=== PATIENT | male | born 1965 | race Caucasian/White ===

== ENCOUNTER 2023-12-03 07:41 | Outpatient (CLI) | payer OTHER ==
[2023-12-03 08:29] LABS: HEMOGLOBIN 15.3 g/dL (13-16.00); MEAN CORPUSCULAR HEMOGLOBIN 30.6 pg (27.00-32.0); MEAN CORPUSCULAR HGB CONC 34.8 g/dl (32.0-36.0); PLATELET COUNT 170 K/uL (150-450); RED CELL DISTRIBUTION WIDTH 13.5 % (11.5-14.5)
[2023-12-03 08:48] LABS: INR 1.02; PARTIAL THROMBOPLASTIN TIME 27.5 SECONDS (22.0-34.0); PROTHROMBIN TIME 11.1 SECONDS (9.0-11.5)
[2023-12-03 08:57] LABS: URINE APPEARANCE Clear; URINE BILIRRUBIN Negative (NEGATIVE); URINE BLOOD Negative; URINE COLOR Yellow; URINE GLUCOSE Negative (NEGATIVE); URINE KETONE Negative (NEGATIVE); URINE LEUKOCYTE Trace; URINE NITRATE Negative; URINE PROTEIN Negative (NEGATIVE)
[2023-12-03 08:58] LABS: URINE BACTERIA 8.8 uL (0.0-1933); URINE RBC 4.5 uL (0.0-20.8); URINE WBC 2.1 uL (0.0-23.2)
[2023-12-03 09:14] LABS: COL EPI 175 SECONDS (82-175)
[2023-12-03 09:30] LABS: BILIRUBIN TOTAL 0.74 mg/dL (0.3-1.2); CALCIUM 9.1 mg/dL (8.5-10.1); CREATININE SERUM 0.84 mg/dL (0.70-1.30); GFR 93.21; GLOBULINA 2.9 G/DL (2.4-3.5); POTASSIUM 4.52 mEq/L (3.5-5.1); TOTAL PROTEIN 6.9 gm/dL (6.4-8.2)
== END 2023-12-03 09:31 | disposition home or self-care (01) ==
LOC: LAB 07:41
PROVIDERS: ATTEND Orthopaedic Surgery
DX: D64.9 Anemia, unspecified (principal); E88.89 Other specified metabolic disorders; D68.8 Other specified coagulation defects; N39.0 Urinary tract infection, site not specified; Z22.322 Carrier or suspected carrier of Methicillin resistant Staphylococcus aureus; Z76.89 Persons encountering health services in other specified circumstances; I10 Essential (primary) hypertension

== ENCOUNTER 2023-12-13 09:36 | Outpatient (CLI) | payer OTHER | END 2023-12-13 10:18 | disposition home or self-care (01) | LOC: LAB 09:36 | PROVIDERS: ATTEND Orthopaedic Surgery | DX: Z76.89 Persons encountering health services in other specified circumstances (principal) ==